=== PATIENT | male | born 1960 | race Two or more races ===

== ENCOUNTER → 2017-10-21 | Outpatient (CLI) | payer BC, OTHER ==
--- NOTE | 2017-10-22 11:15 | RADIOLOGY REPORT (SQ) ---
EXAM DESCRIPTION: NM THYROID SCAN AND UPTAKE COMPLETED DATE/TIME: 10/22/2017 10:16 am REASON FOR STUDY: THYROTOXICOSIS, UNSP WITHOUT THYROTOXIC CRISIS OR STORM E05.90 THYROTOXICOSIS, UN SP WITHOUT THYROTOXIC CRISIS OR STO COMPARISON: Radionuclide thyroid scan and uptake 09/25/2011, 02/26/2013 CT chest 11/03/2015 RADIONUCLIDE AND DOSE: 312 microcuries iodine 123. The route of agent administration: Oral ADDITIONAL DRUGS AND DOSES: None. TECHNIQUE: Iodine uptake was measured at 4 and 24 hours. Images of the neck were acquired. LIMITATIONS: None. FINDINGS: 4 HOUR UPTAKE RADIO-IODINE: 18% (was 11.9% in 02/26/2013, 3% in 09/25/2011) Normal Range of 5-15% [facility] 24 HOUR UPTAKE RADIO-IODINE: 30% (was 31.4% in 2012, 7% in 2011) Normal Range of 15-30% [facility] SCAN: Heterogeneous uptake of the radionuclide throughout both lobes of the gland and isthmus. No hy perfunctioning or dominant nodule is identified. OTHER: No other significant finding. IMPRESSION: Heterogeneous thyroid uptake similar compared to prior exams. No hyperfunctioning nodul e is identified. Mild increased uptake of iodine at 4 and 24 hours, similar compared to 2013 TECHNICAL DOCUMENTATION: JOB ID: [id number] [employer]- All Rights Reserved Reading location - IP/workstation name: [email or web address] [email or web address] THE [facility]-[email or web address]
== END ==
LOC: RAD 09:05
PROVIDERS: ATTEND Internal Medicine
DX: E05.90 Thyrotoxicosis, unspecified without thyrotoxic crisis or storm (principal)
CPT/HCPCS: 78014; A9516

== ENCOUNTER → 2017-10-22 | Outpatient (CLI) | payer BC, OTHER ==
--- NOTE | 2017-10-22 15:57 | RADIOLOGY REPORT (SQ) ---
EXAM DESCRIPTION: CT LUNG CANCER SCREENING COMPLETED DATE/TIME: 10/22/2017 9:26 am REASON FOR STUDY: PERSONAL HX OF NICOTINE DEPENDENCE (Z87.891) Z87.891 PERSONAL HISTORY OF NICOTINE DEPENDENCE Has the patient had a Chest CT scan within the past year? No Was the patient offered tobacco cessation counseling? Yes Was the patient engaged in shared decision making for this test? Yes Does the patient have signs or symptoms of Lung Cancer? No Is the patient a smoker? Yes How many packs per year? 160 How many years since quitting smoking? Not applicable Patients age: 57 COMPARISON: CT chest 11/03/2015, 01/25/2013 TECHNIQUE: Low Dose CT scan performed of the chest without intravenous contrast for purposes of scre ening for lung cancer. Images reviewed with lung, soft tissue and bone windows. Reconstructed coron al and sagittal MPR images reviewed. All images stored on PACS. All CT scanners at this facility use dose modulation, iterative reconstruction, and/or weight based d osing when appropriate to reduce radiation dose to as low as reasonably achievable (ALARA). [facility]: Dose Right [facility]: CareDose [facility]: Dose Right [facility]: Teradose 4D [facility]: Qlue RADIATION DOSE: 2.8 mGy. . LIMITATIONS: None FINDINGS: LUNGS AND PLEURA: Minimal bandlike scarring or atelectasis in the lateral right lung base. No pleural effusions or calcifications. No pneumothorax. No scarring or interstitial changes. HILAR AND MEDIASTINAL STRUCTURES: No identified masses. No abnormal nodes. HEART AND VASCULAR STRUCTURES: No aortic aneurysm. No pericardial effusion. Mitral and tricuspid v alve metallic valve rings. CORONARY ARTERY CALCIFICATIONS: Marked calcifications. UPPER ABDOMEN, THYROID, BONES, OTHER SOFT TISSUES: No significant findings. IMPRESSION: NO SIGNIFICANT FINDING IN THE LUNGS ON NON-CONTRASTED CHEST CT. NO OTHER CLINICALLY SIGNIFICANT/POTENTIALLY CLINICALLY SIGNIFICANT FINDINGS LUNGRADS: LUNGRADS: 1 NEGATIVE. NO NODULES, OR DEFINITELY BENIGN NODULES MODIFIER: NONE RECOMMENDATION: Continue annual screening with LDCT in 12 months. COMMENT: CRITERIA: No lung nodules. Nodules with specific calcifications: Complete, central, popcorn, concentric rings and fat containin g nodules. TECHNICAL DOCUMENTATION: JOB ID: [id number] Quality ID # [id number]: Final reports with documentation of one or more dose reduction techniques (e.g., Au tomated exposure control, adjustment of the mA and/or kV according to patient size, use of iterative reconstruction technique) 2010 [facility] Reading location - IP/workstation name: [email or web address]
== END ==
LOC: RAD 08:48
PROVIDERS: ATTEND Internal Medicine
DX: Z12.2 Encounter for screening for malignant neoplasm of respiratory organs (principal); Z87.891 Personal history of nicotine dependence
CPT/HCPCS: G0297